=== PATIENT | male | born 1980 | race Caucasian/White ===

== ENCOUNTER 2016-09-28 16:42 | Emergency (ER) | payer OTHER ==
[2016-09-28 16:49] VITALS: BP 131/79; PULSE 66; TEMP 98.1; BMI 36.6
--- NOTE | 2016-09-28 17:50 | PDOC ---
History of Present Illness - General Chief Complaint: Injury Stated Complaint: INJURY Time Seen by Provider: 09/28/16 16:59 History Source: Patient Exam Limitations: No Limitations - History of Present Illness Initial Comments: 09/28/16 17:41 CC pain to right ankle post inversion injury of this week Occurred: reports: last week Severity: reports: moderate Pain Location: reports: lower extremity Method of Injury: Yes: fall Past History - Past Medical History Allergies/Adverse Reactions: Allergies Allergy/AdvReac Type Severity Reaction Status Date / Time No Known Allergies Allergy Verified 09/28/16 16:49 Home Medications: Ambulatory Orders NK [No Known Home Medication] 09/28/16 Hypercholesterolemia: Yes (NOT MEDICATED OF 03/22/13) - Immunization History Td Vaccination: No TDAP Vaccination: No Immunization Up to Date: No - Psycho/Social/Smoking Cessation Hx Anxiety: No Suicidal Ideation: No Smoking Status: No Smoking History: Never smoked Number of Cigarettes Smoked Daily: 0 Hx Alcohol Use: Yes (OCCASIONALLY) Drug/Substance Use Hx: No Review of Systems - Review of Systems Constitutional: No: Chills, Fever, Malaise HEENTM: No: Symptoms Reported Respiratory: No: Symptoms reported, Cough Cardiac (ROS): No: Symptoms Reported ABD/GI: No: Symptoms Reported : No: Symptoms Reported Musculoskeletal: Yes: Joint Pain, Joint Swelling. No: Muscle Pain *Physical Exam - Vital Signs Last Vital Signs Temp Pulse Resp BP Pulse Ox 98.1 F 66 18 131/79 97 09/28/16 16:47 09/28/16 16:47 09/28/16 16:47 09/28/16 16:47 09/28/16 16:47 - Physical Exam General Appearance: Yes: Appropriately Dressed. No: Apparent Distress HEENT: positive: TMs Normal, Pharynx Normal Neck: positive: Supple. negative: Tender, Rigid Respiratory/Chest: positive: Lungs Clear Cardiovascular: positive: Regular Rhythm, Regular Rate. negative: Murmur Musculoskeletal: positive: Other (tender to lateral ankle with STS) ED Treatment Course - RADIOLOGY Radiology Studies Ordered: Category Date Time Status ANKLE & FOOT-RIGHT* [RAD] Stat Radiology 09/28/16 17:19 Completed Medical Decision Making - Medical Decision Making 09/28/16 17:44 x-rays= negative; will suggest follow with *DC/Admit/Observation/Transfer Diagnosis at time of Disposition: Strain of right ankle Qualifiers: Encounter type: initial encounter Qualified Code(s): S96.911A - Strain of unspecified muscle and tendon at ankle and foot level, right foot, initial encounter - Discharge Dispostion Disposition: HOME Condition at time of disposition: Stable Admit: No - Patient Instructions Additional Instructions: rest - Post Discharge Activity Work/School Note: Back to Work
== END 2016-09-28 18:04 | disposition home or self-care (01) ==
LOC: JERFT 16:42
DX: S96.811A Strain of other specified muscles and tendons at ankle and foot level, right foot, initial encounter (principal); W19.XXXA Unspecified fall, initial encounter; Y93.69 Activity, other involving other sports and athletics played as a team or group; Y92.838 Other recreation area as the place of occurrence of the external cause; Y99.8 Other external cause status
CPT/HCPCS: 73610-TC-RT; 73630-TC-RT; 99281-25

== ENCOUNTER 2017-12-17 17:47 | Emergency (ER) | payer OTHER ==
[2017-12-17 18:00] VITALS: BP 112/76; PULSE 86; TEMP 987.9; BMI 37.3
--- NOTE | 2017-12-17 18:55 | PDOC ---
History of Present Illness <Claudia Ortaah Anthony - Last Filed: 12/17/17 18:50> - General History Source: Patient, Family Exam Limitations: No Limitations - History of Present Illness Initial Comments: 12/17/17 18:57 Patient is a 37 year old male with a significant past medical history of slight right hearing loss, who presents to the ED with complaints of right ear discharge that began x5 days ago on Tuesday. Patient reports going to [place] when he experienced his right ear popped followed by drainage to his ear. He reports thinking it to be release of water, but when he touched it, it was clear but had a pungent smell. Patient reports getting a CT scan on Tuesday at urgent care center who advised that he not Fly after stating they were not sure if there was any more significant damage that can be increased with pressure. He reports noticing dried white puss on his right ear this morning, prompting him to come into the ED for further evaluation and to determine if he would be able to fly tomorrow. Denies chest pain, Sob. Denies nausea, vomiting. Denies fevers, chills. Denies contact with sick individuals, out of state travelling. Denies dysuria, hematuria. Denies diarrhea, constipation. Denies head trauma, blurred vision, loss of consciousness. Denies any other symptoms. Allergies: None Social history: No smoking. No illicit drugs. No illicit drugs Surgical history: None PMD: None <Gavin Morley - Last Filed: 12/17/17 18:58> - General Chief Complaint: Ear Problem Stated Complaint: rt ear drainage Time Seen by Provider: 12/17/17 17:57 Past History - Past Medical History COPD: No Hypercholesterolemia: Yes (NOT MEDICATED OF 03/22/13) - Immunization History Td Vaccination: No TDAP Vaccination: No Immunization Up to Date: No - Suicide/Smoking/Psychosocial Hx Smoking Status: No Smoking History: Never smoked Have you smoked in the past 12 months: No Number of Cigarettes Smoked Daily: 0 Information on smoking cessation initiated: No Hx Alcohol Use: No Drug/Substance Use Hx: No Substance Use Type: None <Sarahi Orta - Last Filed: 12/17/17 18:50> <Gavin Morley - Last Filed: 12/17/17 18:58> - Past Medical History Allergies/Adverse Reactions: Allergies Allergy/AdvReac Type Severity Reaction Status Date / Time No Known Allergies Allergy Verified 12/17/17 17:50 Home Medications: Ambulatory Orders Amoxicillin/Potassium Clav [Augmentin 875-125 Tablet] 1 each PO BID 10 Days #20 tablet 12/17/17 Ciprofloxacin HCl/Dexameth [Ciprodex Otic Suspension] 4 drop OT BID #1 bottle Methylprednisolone [Medrol -] 4 mg PO DAILY #10 tablet 12/17/17 Oxymetazoline HCl [Afrin] 1 spray NS BID 3 Days #1 bottle 12/17/17 Review of Systems - Review of Systems Able to Perform ROS?: Yes Comments:: 12/17/17 18:57 See HPI. All other systems reviewed and unremarkable <Gavin Morley - Last Filed: 12/17/17 18:58> *Physical Exam - Vital Signs Last Vital Signs Temp Pulse Resp BP Pulse Ox 987.9 F H 86 20 112/76 100 12/17/17 17:49 12/17/17 17:49 12/17/17 17:49 12/17/17 17:49 12/17/17 17:49 <Sarahi Orta - Last Filed: 12/17/17 18:50> - Vital Signs Last Vital Signs Temp Pulse Resp BP Pulse Ox 987.9 F H 86 20 112/76 100 12/17/17 17:49 12/17/17 17:49 12/17/17 17:49 12/17/17 17:49 12/17/17 17:49 - Physical Exam Comments: 12/17/17 18:57 General Physical Exam: NAD EOMI, YANY +Right T.M sunken with no drainage or bleeding no clear visible ruption. No lympadenopy. No tenderness of the luis a/tragos. Left T.M unremarkable. MMM, OP WNL NCAT, no midline cervical tenderness RRR, nl s1/s2, no m/r/g CTABL, no w/r/r Soft, NTND No edema, WWP, no rash Neuro grossly intact, gait WNL, moving all 4 A&O x 3, mood/affect WNL. <Gavin Morley - Last Filed: 12/17/17 18:58> Medical Decision Making - Medical Decision Making 12/17/17 18:50 37yoM undergoing ENT evaluation for chroni otitis and hearing loss, presnets w/ concern of likely TM rupture yesterday, pt wants to know if he can fly to [place] tomorrow. - d/w ENT. Flying at pt's own risk, not advised by ENT until further information is obtained. - increase abx to augmentin, add ciprodex drops, PO steroids, Afrin. - DC <Sarahi Orta - Last Filed: 12/17/17 18:50> *DC/Admit/Observation/Transfer <Sarahi Orta - Last Filed: 12/17/17 18:50> - Attestations Scribe Attestion: 12/17/17 18:58 Documentation prepared by Gavin Morley, acting as administrative medical director for Sarahi Orta MD. <Gavin Morley - Last Filed: 12/17/17 18:58> Diagnosis at time of Disposition: Ruptured tympanic membrane - Discharge Dispostion Disposition: HOME Condition at time of disposition: Good - Prescriptions Prescriptions: Amoxicillin/Potassium Clav [Augmentin 875-125 Tablet] 1 each PO BID 10 Days #20 tablet Ciprofloxacin HCl/Dexameth [Ciprodex Otic Suspension] 4 drop OT BID #1 bottle Methylprednisolone [Medrol -] 4 mg PO DAILY #10 tablet Oxymetazoline HCl [Afrin] 1 spray NS BID 3 Days #1 bottle - Referrals Referrals: Raymundo Medrano MD [Staff Physician] - - Patient Instructions Additional Instructions: Followup with Dr. Medrano on Tuesday. Flying is not advised until you have undergone official ENT evaluation by Dr. Medrano. If you do choose to fly, you do so at your own risk. You may experience increased pain, futher damage and potientially permanent hearing lost of dammage to the ear by flying. Please stop amoxicillin. START: augmentin ciprodex drops afrin nasal spray medrol return to ER for fever over 101 and severe swelling to ear/side of face. - Post Discharge Activity Forms/Work/School Notes: Back to Work
== END 2017-12-17 19:05 | disposition home or self-care (01) ==
LOC: FER 17:47
DX: H72.91 Unspecified perforation of tympanic membrane, right ear (principal)
CPT/HCPCS: 99281-25

== ENCOUNTER 2021-12-16 19:47 | Emergency (ER) | payer OTHER ==
[2021-12-16 20:02] VITALS: BP 110/74; PULSE 84; RESP 18; BMI 39.1
[2021-12-16] MEDS ORDERED: KETOROLAC TROMETHAMINE 30 MG/1 ML VIAL IM ONE (20:26)
[2021-12-16] MEDS ORDERED: ACETAMINOPHEN 500 MG TABLET (FP) PO ONE (20:26)
[2021-12-16] MEDS ORDERED: KETOROLAC TROMETHAMINE 30 MG/1 ML VIAL ONE (20:29)
[2021-12-16] MEDS ORDERED: ACETAMINOPHEN 500 MG TABLET (FP) ONE (20:29)
[2021-12-16 21:22] VITALS: TEMP 100.7
== END 2021-12-16 21:31 | disposition home or self-care (01) ==
LOC: JER 19:47 → JERFT 19:47
PROC: 3E0233Z Introduction of Anti-inflammatory into Muscle, Percutaneous Approach (ICD-10-PCS; principal; 2021-12-16)
DX: J02.9 Acute pharyngitis, unspecified (principal)
CPT/HCPCS: 96372; 99283-25

== ENCOUNTER 2022-07-26 22:47 | Observation (INO) | payer OTHER ==
[2022-07-27] MEDS ORDERED: MECLIZINE HCL 25 MG TABLET (FP) PO ONE (00:06)
[2022-07-27] MEDS ORDERED: MECLIZINE HCL 25 MG TABLET (FP) ONE (00:23)
[2022-07-27 01:49] LABS: HEMATOCRIT 43.7 % (35.4-49); HEMOGLOBIN 15.1 GM/dL (11.7-16.9); MCH 30.2 pg (25.7-33.7); MCHC 34.7 g/dl (32.0-35.9); MEAN PLT VOLUME 9.1 fl (7.5-11.1); PLATELET COUNT 185 10^3/uL (134-434); RBC 5.02 M/mm3 (4.00-5.60); RDW 13.3 % (11.9-15.9); WHITE BLOOD COUNT 12.4 K/mm3 (4.0-10.0)
[2022-07-27 02:10] LABS: POTASSIUM 4.1 mmol/L (3.5-5.1)
[2022-07-27 02:12] LABS: ALBUMIN 3.6 g/dl (3.4-5.0); BLOOD UREA NITROGEN 20.1 mg/dL (7-18); CALCIUM 9.1 mg/dL (8.5-10.1)
[2022-07-27 02:15] LABS: CREATININE 0.9 mg/dL (0.55-1.3)
[2022-07-27 02:17] LABS: BILIRUBIN,TOTAL 0.4 mg/dL (0.2-1)
[2022-07-27 06:53] LABS: PH,URINE 5.5 (5.0-8.0); URINE APPEARANCE CLEAR; URINE BILIRUBIN NEGATIVE (NEGATIVE); URINE COLOR YELLOW; URINE GLUCOSE (UA) TRACE (NEGATIVE); URINE KETONE NEGATIVE (NEGATIVE); URINE LEUK ESTERASE NEGATIVE (NEGATIVE); URINE NITRITE NEGATIVE (NEGATIVE); URINE PROTEIN NEGATIVE (NEGATIVE); URINE UROBILINOGEN 0.2 mg/dL (0.2-1.0)
[2022-07-27 07:19] LABS: OPIATES, URI NEGATIVE (NEGATIVE); PHENCYCLIDINE,URINE NEGATIVE (NEGATIVE); URINE BARBITURATES NEGATIVE (NEGATIVE)
[2022-07-27 07:26] LABS: COCAINE, UR NEGATIVE (NEGATIVE); METHADONE, UR NEGATIVE (NEGATIVE); URINE AMPHETAMINES NEGATIVE (NEGATIVE); URINE BENZODIAZEPINES NEGATIVE (NEGATIVE)
[2022-07-27] MEDS ORDERED: MECLIZINE HCL 25 MG TABLET (FP) PO PRN (08:33)
[2022-07-27] MEDS ORDERED: ONDANSETRON 4 MG/2 ML VIAL IVPUSH PRN (08:34)
[2022-07-27 12:36] LABS: BASO % 0.3 % (0-2.0); EOS % 1.3 % (0-4.5); HEMATOCRIT 43.4 % (35.4-49); HEMOGLOBIN 15.6 GM/dL (11.7-16.9); LYMPH % 29.4 % (8-40); MCH 30.7 pg (25.7-33.7); MEAN CELL VOLUME 85.3 fl (80-96); MEAN PLT VOLUME 8.4 fl (7.5-11.1); MONO % 9.7 % (3.8-10.2); NEUT % 59.3 % (42.8-82.8); PLATELET COUNT 179 10^3/uL (134-434); RBC 5.09 M/mm3 (4.00-5.60); RDW 13.2 % (11.9-15.9); WHITE BLOOD COUNT 7.4 K/mm3 (4.0-10.0)
[2022-07-27 12:54] LABS: POTASSIUM 4.1 mmol/L (3.5-5.1)
[2022-07-27 12:57] LABS: ALBUMIN 3.4 g/dl (3.4-5.0); CALCIUM 9.2 mg/dL (8.5-10.1); MAGNESIUM 2.2 mg/dL (1.8-2.4)
[2022-07-27 12:58] LABS: BLOOD UREA NITROGEN 15.7 mg/dL (7-18)
[2022-07-27 13:00] LABS: CREATININE 0.8 mg/dL (0.55-1.3); PHOSPHOROUS 3.7 mg/dL (2.5-4.9)
[2022-07-27 13:02] LABS: BILIRUBIN,TOTAL 0.5 mg/dL (0.2-1); TOT PROT 6.8 g/dl (6.4-8.2)
[2022-07-28 03:28] VITALS: BMI 38.4
[2022-07-28 08:48] LABS: BASO % 0.2 % (0-2.0); EOS % 1.2 % (0-4.5); HEMATOCRIT 45.5 % (35.4-49); HEMOGLOBIN 16.1 GM/dL (11.7-16.9); MCH 30.6 pg (25.7-33.7); MCHC 35.5 g/dl (32.0-35.9); MEAN PLT VOLUME 8.5 fl (7.5-11.1); MONO % 8.5 % (3.8-10.2); NEUT % 64.1 % (42.8-82.8); PLATELET COUNT 179 10^3/uL (134-434); RBC 5.28 M/mm3 (4.00-5.60); RDW 13.2 % (11.9-15.9); WHITE BLOOD COUNT 7.1 K/mm3 (4.0-10.0)
[2022-07-28 08:54] LABS: POTASSIUM 4.5 mmol/L (3.5-5.1)
[2022-07-28 09:02] LABS: ALBUMIN 3.4 g/dl (3.4-5.0); BLOOD UREA NITROGEN 17.4 mg/dL (7-18); MAGNESIUM 2.1 mg/dL (1.8-2.4)
[2022-07-28 09:04] LABS: PHOSPHOROUS 3.3 mg/dL (2.5-4.9)
[2022-07-28 09:05] LABS: BILIRUBIN,TOTAL 0.5 mg/dL (0.2-1); TOT PROT 6.7 g/dl (6.4-8.2)
[2022-07-28] MEDS ORDERED: ENOXAPARIN NA (PORCINE) 40 MG/0.4 ML DISP.SYRIN SQ SCH (10:00)
[2022-07-28 13:05] VITALS: BP 122/62; PULSE 66; RESP 20; TEMP 98.3
== END 2022-07-28 14:13 | disposition home or self-care (01) ==
LOC: JER 22:47 → INTOOBSV 07-27 02:52 → UNDOADMOB 07-27 02:52 → JERBED 07-27 02:52 → J5S 07-28 00:36
PROVIDERS: ADMIT Internal Medicine; ATTEND Internal Medicine
PROC: 3E023GC Introduction of Other Therapeutic Substance into Muscle, Percutaneous Approach (ICD-10-PCS; principal; 2022-07-27)
DX: R42 Dizziness and giddiness (principal); R00.1 Bradycardia, unspecified; H91.90 Unspecified hearing loss, unspecified ear; E78.5 Hyperlipidemia, unspecified; R11.2 Nausea with vomiting, unspecified
CPT/HCPCS: 0241U-QW; 36415; 70450-TC; 70551-TC; 80053; 80307; 81003; 83735; 84100; 84443; 84484; 85025; 85027; 93005; 93010; 96372; 99285-25; G0378